=== PATIENT | female | born 1975 | race Caucasian/White ===

== ENCOUNTER 2018-12-06 21:47 | Emergency (ER) | payer MEDICARE ==
[~2018-12-06] VITALS: Ht 170.2 cm; Wt 106.6 kg
--- NOTE | 2018-12-06 21:52 | ED.ADGEN ---
Past History Past Medical History: Depression, Fibromyalgia, Kidney Stones, Renal Failure Past Surgical History: Appendectomy, Cholecystectomy, Hysterectomy, Other Smoking: Cigarettes Alcohol Use: None Drug Use: None Adult General Chief Complaint Chief Complaint " All of sudden.. I started getting really severe Rt. .. flank and abdomen pain.. I almost had everything out... gallbladder, appendix, hysterectomy and ovaries.. what could be left that hurts this bad..." HPI HPI Patient is a 43 year old female who presents with above hx and complaints sever Lt flank pain. Patient denies any intake of bad food. Patient denies any trauma. No history of immunosuppression. No history of ill contact. No history of dysuria. No history of constipation. No history of kidney stones with her family members. Pain is on right flank and radiates to right groin. Only follows with Dr. Stallworth. She rates her pain as severe. She has severe nausea when she has waves of pain. Patient does have history of multiple abdomen surgeries. Review of Systems Review of Systems Constitutional: Denies fever or chills [] Eyes: Denies change in visual acuity, redness, or eye pain [] HENT: Denies nasal congestion or sore throat [] Respiratory: Denies cough or shortness of breath [] Cardiovascular: No additional information not addressed in HPI [] GI: Complaints of right flank abdominal pain, nausea,. Denies vomiting, bloody stools or diarrhea [] : Denies dysuria or hematuria [] Musculoskeletal: Right flank back pain. Denies joint pain [] Integument: Denies rash or skin lesions [] Neurologic: Denies headache, focal weakness or sensory changes [] Endocrine: Denies polyuria or polydipsia [] All other systems were reviewed and found to be within normal limits, except as documented in this note. Family History Family History Noncontributory Current Medications Current Medications Current Medications Medications (Trade) Dose Ordered Sig/Theron Start Time Stop Time Status Last Admin Dose Admin Ceftriaxone Sodium 1 gm/ Sodium Chloride 50 ml @ 100 mls/hr 1X ONCE 12/06/18 23:30 12/06/18 23:59 DC 12/07/18 00:10 100 MLS/HR Ceftriaxone Sodium (Rocephin) 1 gm STK-MED ONCE 12/07/18 00:01 12/07/18 00:01 DC Famotidine (Pepcid Vial) 20 mg 1X ONCE 12/06/18 22:45 12/06/18 22:46 DC 12/06/18 22:40 20 MG Ketorolac Tromethamine (Toradol 30mg Vial) 30 mg 1X ONCE 12/06/18 22:45 12/06/18 22:46 DC 12/06/18 22:40 30 MG Lactated Ringer's 1,000 ml @ 1,000 mls/hr Q1H 12/06/18 22:31 12/06/18 23:30 DC 12/06/18 22:40 1,000 MLS/HR Levofloxacin (Levaquin) 500 mg STK-MED ONCE 12/07/18 01:39 12/07/18 01:49 DC Morphine Sulfate (Morphine 10mg Syringe) 10 mg STK-MED ONCE 12/07/18 00:01 12/07/18 00:08 DC Ondansetron HCl (Zofran) 8 mg 1X ONCE 12/06/18 22:45 12/06/18 22:46 DC 12/06/18 22:40 8 MG Sodium Chloride 50 ml @ As Directed STK-MED ONCE 12/07/18 00:01 12/07/18 00:01 DC See nursing for home meds Allergies Allergies Allergies Coded Allergies Type Severity Reaction Last Updated Verified gabapentin Allergy Severe Anaphylaxis 12/06/18 Yes Physical Exam Physical Exam Constitutional: in acute distress, non-toxic appearance. [] HENT: Normocephalic, atraumatic, bilateral external ears normal, oropharynx moist, no oral exudates, nose normal. [] Eyes: PERRLA, EOMI, conjunctiva normal, no discharge. [] Neck: Normal range of motion, no tenderness, supple, no stridor. [] Cardiovascular:Heart rate regular rhythm, no murmur [] Lungs & Thorax: Bilateral breath sounds equal at apexes on auscultation Abdomen: Bowel sounds normal, soft, right flank tenderness, no masses, no pulsatile masses. [] Old surgical scars. Skin: Warm, dry, no erythema, no rash. [] Back: No tenderness, right CVA tenderness. [] Extremities: No tenderness, no cyanosis, no clubbing, ROM intact, no edema. [] Neurologic: Alert and oriented X 3, normal motor function, normal sensory function, no focal deficits noted. [] Psychologic: Affect normal, judgement normal, mood normal. [] Current Patient Data Vital Signs Vital Signs Date Time Temp Pulse Resp B/P (MAP) Pulse Ox O2 Delivery O2 Flow Rate FiO2 12/07/18 01:23 20 109/70 (83) 98 Room Air 12/07/18 00:23 81 12/06/18 22:14 97.8 Lab Results Laboratory Tests Test 12/06/18 22:00 12/06/18 22:20 Urine Collection Type Unknown Urine Color Yellow Urine Clarity Cloudy Urine pH 6.0 Urine Specific [place] 1.025 Urine Protein >100 mg/dl (NEG-TRACE) Urine Glucose (UA) Neg mg/dL (NEG) Urine Ketones (Stick) Neg mg/dL (NEG) Urine Blood Large (NEG) Urine Nitrite Pos (NEG) Urine Bilirubin Neg (NEG) Urine Urobilinogen Dipstick 0.2 mg/dL (0.2 mg/dL) Urine Leukocyte Esterase Mod (NEG) Urine RBC 11-20 /HPF (0-2) Urine WBC >40 /HPF (0-4) Urine Squamous Epithelial Cells Few /LPF Urine Bacteria Many /HPF (0-FEW) Urine Opiates Screen Neg (NEG) Urine Methadone Screen Neg (NEG) Urine Barbiturates Neg (NEG) Urine Phencyclidine Screen Neg (NEG) Urine Amphetamine/Methamphetamine Neg (NEG) Urine Benzodiazepines Screen Neg (NEG) Urine Cocaine Screen Neg (NEG) Urine Cannabinoids Screen Neg (NEG) Urine Ethyl Alcohol Neg (NEG) White Blood Count 12.1 x10^3/uL (4.0-11.0) H Red Blood Count 5.34 x10^6/uL (3.50-5.40) Hemoglobin 14.7 g/dL (12.0-15.5) Hematocrit 44.5 % (36.0-47.0) Mean Corpuscular Volume 83 fL (79-100) Mean Corpuscular Hemoglobin 28 pg (25-35) Mean Corpuscular Hemoglobin Concent 33 g/dL (31-37) Red Cell Distribution Width 15.8 % (11.5-14.5) H Platelet Count 236 x10^3/uL (140-400) Neutrophils (%) (Auto) 71 % (31-73) Lymphocytes (%) (Auto) 22 % (24-48) L Monocytes (%) (Auto) 6 % (0-9) Eosinophils (%) (Auto) 1 % (0-3) Basophils (%) (Auto) 1 % (0-3) Neutrophils # (Auto) 8.5 x10^3uL (1.8-7.7) H Lymphocytes # (Auto) 2.7 x10^3/uL (1.0-4.8) Monocytes # (Auto) 0.7 x10^3/uL (0.0-1.1) Eosinophils # (Auto) 0.1 x10^3/uL (0.0-0.7) Basophils # (Auto) 0.1 x10^3/uL (0.0-0.2) Prothrombin Time 9.6 SEC (9.4-11.4) Prothrombin Time INR 0.9 (0.9-1.1) Activated Partial Thromboplast Time 24 SEC (23-33) Sodium Level 140 mmol/L (136-145) Potassium Level 3.5 mmol/L (3.5-5.1) Chloride Level 104 mmol/L (98-107) Carbon Dioxide Level 25 mmol/L (21-32) Anion Gap 11 (6-14) Blood Urea Nitrogen 7 mg/dL (7-20) Creatinine 0.9 mg/dL (0.6-1.0) Estimated GFR (Cockcroft-Gault) 68.0 Glucose Level 187 mg/dL (70-99) H Calcium Level 9.1 mg/dL (8.5-10.1) Total Bilirubin 0.2 mg/dL (0.2-1.0) Direct Bilirubin 0.1 mg/dL (0.0-0.2) Aspartate Amino Transferase (AST) 13 U/L (15-37) L Alanine Aminotransferase (ALT) 34 U/L (14-59) Alkaline Phosphatase 171 U/L (46-116) H Creatine Kinase 60 U/L (26-192) Troponin I Quantitative < 0.017 ng/mL (0-0.055) Total Protein 7.5 g/dL (6.4-8.2) Albumin 3.3 g/dL (3.4-5.0) L Amylase Level 27 U/L (25-115) Lipase 97 U/L (73-393) EKG EKG My interpretation EKG shows sinus rhythm at 81 bpm. No acute pathology[] Radiology/Procedures Radiology/Procedures [My interpretation of Acute Abd. film- no acute cardiopulmonary changes. No free air in the diaphragm. Nonspecific nonobstructive bowel gas pattern. Does have clips from previous surgery. See formal report when available ][address] [address] IMAGING REPORT Signed PATIENT: SASHA CARRANZA ACCOUNT: [id number] : 1975 LOCATION: ER AGE: 43 SEX: F EXAM STATUS: REG ER ORD. PHYSICIAN: DELANEY CLEARY MD REASON: Right flank pain.Hx cholecystectomy,hysterectomy,appendectomy PROCEDURE: CT CHEST ABDOMEN PELVIS WO INDICATION: Right-sided pain COMPARISON: None. TECHNIQUE: Axial CT images obtained through the chest, abdomen and pelvis without contrast. Limited assessment of solid organ structures and vasculature secondary to lack of intravenous contrast.. One or more of the following individualized dose reduction techniques were utilized for this examination: 1. Automated exposure control; 2. Adjustment of the mA and/or kV according to patient size; 3. Use of iterative reconstruction technique. FINDINGS: Chest: Minimal dependent groundglass opacities could be atelectasis. No evidence of pneumothorax. Mild cystic changes lung apices. No evidence of thoracic aortic aneurysm. Abdomen and pelvis: No abdominal aortic aneurysm. Scattered calcific atherosclerosis. Nodular density in the right breast measuring up to about 13 mm. No intrahepatic bile duct dilation. Postcholecystectomy changes. No definite peripancreatic fluid collection. There are couple low-density foci within the spleen. The spleen appears enlarged. No left-sided hydronephrosis. Urinary bladder largely decompressed. Right-sided hydronephrosis and hydroureter with edema seen adjacent to the ureter and kidney no dilated loops of bowel suggest obstruction. Degenerative changes the spine. IMPRESSION: 1. Right-sided hydronephrosis and hydroureter with edema seen adjacent to the kidney and ureter. Differential considerations include a recently passed ureter stone or infectious etiology. 2. Splenomegaly. 3. Low-density lesion within the right breast. May be cystic in nature but may be helpful to obtain a follow-up nonemergent ultrasound to confirm. Electronically signed by: Pam Harley MD (12/07/2018 12:34 AM) [id number] DICTATED AND SIGNED BY: PAM HARLEY MD DATE: 12/07/18 0034 CC: DELANEY CLEARY MD; VINCENZO STALLWORTH MD ~ Course & Med Decision Making Course & Med Decision Making Pertinent Labs and Imaging studies reviewed. (See chart for details) Discussed options of treatment and reviewed lab and x-ray findings with patient. Patient elects to be discharged home. Patient declines admission at this time. Patient advised to stay on a clear fluid diet. May have to have repeat CT with contrast. No obvious stone noted but does have findings of hydronephrosis. Discussed other causes of hydronephrosis. Patient must follow-up. Patient advised may need stent placement of hydronephrosis does not clear. Patient take Zofran 8 mg 4 times a day for nausea and vomiting. For marked pain may take Vicoprofen up 4 times a day. Patient take Levaquin 500 mg a day. Patient return of any concerns. Strongly recommend follow-up urology. She did have a follow- up ultrasound of right breast evaluate cystic lesion. [] Final Impression Final Impression 1. []Right flank-renal colic pain 2. Leukocytosis 12.1 3. UTI 4. DM 187 5. Rt. Hydronephrosis- suspect recently passed stone 6. Rt. Breast Lesion? Cystic ? Dragon Disclaimer Dragon Disclaimer This electronic medical record was generated, in whole or in part, using a voice recognition dictation system. Dragon Disclaimer This chart was dictated in whole or in part using Voice Recognition software in a busy, high-work load, and often noisy Emergency Department environment. It may contain unintended and wholly unrecognized errors or omissions. DELANEY CLEARY MD Dec 06, 2018 21:52
[2018-12-06] MEDS ORDERED: IV RINGERS SOLUTION,LACTATED 1,000 ML IV SCH (22:31)
[2018-12-06 22:32] LABS: AMPHETAMINE/METHAMPHETAMINE NEG (NEG); BARBITURATES NEG (NEG); BENZODIAZEPINES NEG (NEG); CANNABINOIDS NEG (NEG); COCAINE NEG (NEG); METHADONE NEG (NEG); OPIATES NEG (NEG); PHENCYCLIDINE NEG (NEG)
[2018-12-06 22:43] LABS: BACTERIA,URINE MANY /HPF (0-FEW); BILIRUBIN,URINE NEG (NEG); CLARITY,URINE CLOUDY; COLOR,URINE YELLOW; GLUCOSE,URINE NEG (NEG); NITRITE,URINE POS (NEG); SQUAMOUS EPITHELIAL CELL,UR FEW /LPF; UROBILINOGEN,URINE 0.2 mg/dL (0.2 mg/dL); WBC,URINE >40 /HPF (0-4)
[2018-12-06] MEDS ORDERED: ONDANSETRON PF 4 MG/2 ML VIAL. IV ONE (22:45)
[2018-12-06] MEDS ORDERED: KETOROLAC 30 MG/ML VIAL. IV ONE (22:45)
[2018-12-06] MEDS ORDERED: FAMOTIDINE 20 MG/2 ML VIAL IVP ONE (22:45)
[2018-12-06 22:50] LABS: BASO # 0.1 x10^3/uL (0.0-0.2); BASO % 1 % (0-3); EOS # 0.1 x10^3/uL (0.0-0.7); EOS % 1 % (0-3); HEMATOCRIT 44.5 % (36.0-47.0); HEMOGLOBIN 14.7 g/dL (12.0-15.5); LYMPH # 2.7 x10^3/uL (1.0-4.8); LYMPH % 22 % (24-48); MEAN CORPUSCULAR HEMOGLOBIN 28 pg (25-35); MEAN CORPUSCULAR HGB CONC 33 g/dL (31-37); MEAN CORPUSCULAR VOLUME 83 fL (79-100); MONO # 0.7 x10^3/uL (0.0-1.1); MONO % 6 % (0-9); NEUT # 8.5 x10^3uL (1.8-7.7); NEUT % 71 % (31-73); PLATELET COUNT 236 x10^3/uL (140-400); RED BLOOD COUNT 5.34 x10^6/uL (3.50-5.40); RED CELL DISTRIBUTION WIDTH 15.8 % (11.5-14.5); WHITE BLOOD COUNT 12.1 x10^3/uL (4.0-11.0)
[2018-12-06 23:00] LABS: ALBUMIN 3.3 g/dL (3.4-5.0); CALCIUM 9.1 mg/dL (8.5-10.1); CREATININE 0.9 mg/dL (0.6-1.0); DIRECT BILIRUBIN 0.1 mg/dL (0.0-0.2); POTASSIUM 3.5 mmol/L (3.5-5.1); TOTAL BILIRUBIN 0.2 mg/dL (0.2-1.0); TOTAL PROTEIN 7.5 g/dL (6.4-8.2)
[2018-12-07] MEDS ORDERED: IV NORMAL SALINE 50ML 50 ML ONE (00:01)
[2018-12-07] MEDS ORDERED: MORPHINE SULFATE 10 MG/ML SYRINGE. ONE (00:01)
[2018-12-07] MEDS ORDERED: cefTRIAXone SODIUM 1 GM VIAL ONE (00:01)
[2018-12-07] MEDS ORDERED: MORPHINE SULFATE 10 MG/ML SYRINGE. SQ ONE ×2 (00:15)
--- NOTE | 2018-12-07 00:37 | RAD ---
INDICATION: Right-sided pain COMPARISON: None. TECHNIQUE: Axial CT images obtained through the chest, abdomen and pelvis without contrast. Limited assessment of solid organ structures and vasculature secondary to lack of intravenous contrast.. One or more of the following individualized dose reduction techniques were utilized for this examination: 1. Automated exposure control; 2. Adjustment of the mA and/or kV according to patient size; 3. Use of iterative reconstruction technique. FINDINGS: Chest: Minimal dependent groundglass opacities could be atelectasis. No evidence of pneumothorax. Mild cystic changes lung apices. No evidence of thoracic aortic aneurysm. Abdomen and pelvis: No abdominal aortic aneurysm. Scattered calcific atherosclerosis. Nodular density in the right breast measuring up to about 13 mm. No intrahepatic bile duct dilation. Postcholecystectomy changes. No definite peripancreatic fluid collection. There are couple low-density foci within the spleen. The spleen appears enlarged. No left-sided hydronephrosis. Urinary bladder largely decompressed. Right-sided hydronephrosis and hydroureter with edema seen adjacent to the ureter and kidney no dilated loops of bowel suggest obstruction. Degenerative changes the spine. IMPRESSION: 1. Right-sided hydronephrosis and hydroureter with edema seen adjacent to the kidney and ureter. Differential considerations include a recently passed ureter stone or infectious etiology. 2. Splenomegaly. 3. Low-density lesion within the right breast. May be cystic in nature but may be helpful to obtain a follow-up nonemergent ultrasound to confirm. Electronically signed by: Luis A Mcdaniel MD (12/07/2018 12:34 AM) [id number]
[2018-12-07 01:23] VITALS: BP 109/70
[2018-12-07] MEDS ORDERED: HYDR-1179 PO (01:30)
[2018-12-07] MEDS ORDERED: ONDA8TAB9 PO (01:30)
[2018-12-07] MEDS ORDERED: LEVO500T59 PO (01:30)
[2018-12-07] MEDS ORDERED: levoFLOXacin 500 MG TABLET ONE (01:39)
[2018-12-07] MEDS ORDERED: levoFLOXacin 500 MG TABLET PO ONE (01:45)
--- NOTE | 2018-12-07 01:57 | EKG ---
[address] [address] Test Date: 2018-12-06 Test Time: 23:03:09 Pat Name: SASHA CARRANZA Department: Room: Gender: F Materials Mgmt Tech: KALEB : 1975 Requested By: DELANEY CLEARY Order Number: [id number] Reading MD: Measurements Intervals [place] Rate: 81 P: 39 TX: 148 QRS: 59 QRSD: 80 T: 54 QT: 368 QTc: 428 Interpretive Statements SINUS RHYTHM NORMAL ECG RI6.01 No previous ECG available for comparison
--- NOTE | 2018-12-07 08:27 | RAD ---
ACUTE ABDOMEN SERIES History: Right flank pain. Comparison: None. Findings: Frontal chest and supine and upright views of the abdomen. Cardiomediastinal silhouette is normal. Eventration right hemidiaphragm. There is no pleural effusion or pneumothorax. The lungs are clear. No pneumoperitoneum is identified. No dilated air-filled loops of bowel are seen. Bowel gas pattern is nonobstructive. Mild colonic stool volume. Moderate splenomegaly. Hepatomegaly versus normal variant [place] lobe. Bones unremarkable. Cholecystectomy clips. IMPRESSION: 1. No acute cardiopulmonary process. 2. Nonobstructive bowel gas pattern. 3. Splenomegaly. Electronically signed by: Nacho Bowman MD (12/07/2018 8:24 AM) [facility]
== END 2018-12-07 01:40 | disposition home or self-care (01) ==
LOC: ER 21:47
DX: N13.30 Unspecified hydronephrosis (principal); N23 Unspecified renal colic; D72.829 Elevated white blood cell count, unspecified; N39.0 Urinary tract infection, site not specified; E11.9 Type 2 diabetes mellitus without complications; R16.1 Splenomegaly, not elsewhere classified; M79.7 Fibromyalgia; F17.210 Nicotine dependence, cigarettes, uncomplicated; Z87.442 Personal history of urinary calculi; Z90.49 Acquired absence of other specified parts of digestive tract; Z90.89 Acquired absence of other organs; Z90.710 Acquired absence of both cervix and uterus; Z88.8 Allergy status to other drugs, medicaments and biological substances
CPT/HCPCS: 36415; 71250; 74022; 74176; 80048; 80076; 80307; 81001; 82150; 82550; 83690; 84484; 85025; 85610; 85730; 87086; 93005; 96372; 96374; 96375; 99285; J0696; J1885; J2270; J2405; J3490; J7120